=== PATIENT | female | born 1995 | race Caucasian/White ===

== ENCOUNTER 2018-02-18 08:18 | Emergency (ER) | payer OTHER ==
[2018-02-18 09:35] LABS: URINE PH (Dip) POC 5.5 (5.0-8.5)
[2018-02-18 09:35] LABS: URINE BLOOD (Dip) POC 2+ (NEGATIVE); URINE GLUCOSE (Dip) POC Negative (NEGATIVE); URINE KETONES (Dip) POC Negative (NEGATIVE); URINE LEUKOCYTE EST (Dip) POC Negative (NEGATIVE); URINE NITRITE (Dip) POC Negative (NEGATIVE); URINE TOTAL PROTEIN POC Negative (NEGATIVE)
== END 2018-02-18 10:04 | disposition home or self-care (01) ==
LOC: FTE 10:04
DX: N92.0 Excessive and frequent menstruation with regular cycle (principal)
CPT/HCPCS: 81003; 81025; 99283